=== PATIENT | female | born 1985 | race African-American/Black ===

== ENCOUNTER 2016-09-08 18:18 | Emergency (ER) | payer SELFPAY ==
[~2016-09-08] VITALS: Ht 160 cm; Wt 101.1 kg
[~2016-09-08 18:18] MED LIST: NAPROSYN500 MG PO
[2016-09-08 18:45] VITALS: BP 112/71
== END 2016-09-08 20:13 ==
LOC: RME 18:18 → EME 18:18 → RME 20:13
DX: S43.402A Unspecified sprain of left shoulder joint, initial encounter (principal); X50.3XXA Overexertion from repetitive movements, initial encounter; Y93.E5 Activity, floor mopping and cleaning
CPT/HCPCS: 73030; 99281; 99283

== ENCOUNTER 2017-05-31 15:37 | Emergency (ER) | payer OTHER ==
[~2017-05-31] VITALS: Ht 175.3 cm; Wt 104.4 kg
[2017-05-31 16:22] LABS: HEMATOCRIT 34.2 % (36.0-46.0); HEMOGLOBIN 11.9 G/DL (11.9-15.5); MCH 32.3 PG (29.0-34.0); MCHC 34.8 G/DL (30.0-36.0); MCV 92.9 FL (83-99); PLATELET COUNT 214 K/uL (156-360); RBC DIS.WIDTH-CV 14.2 % (11.8-14.6); RBC DIS.WIDTH-SD 47.9 % (39-53); RED BLOOD COUNT 3.68 M/uL (3.80-5.20); WHITE BLOOD COUNT 8.6 K/uL (4.1-10.2)
[2017-05-31 16:30] LABS: CHLORIDE 107 mEq/L (99-109); POTASSIUM 4.2 mEq/L (3.7-5.4); SODIUM 140 mEq/L (136-147)
[2017-05-31 16:32] LABS: GLUCOSE 109 mg/dL (70-99)
[2017-05-31 16:35] LABS: SERUM ETHYL ALCOHOL < 10 mg/dL
[2017-05-31 16:36] LABS: CREATININE 0.8 mg/dL (0.6-1.3); GFR ESTIMATE (CALCULATED) > 59 mL/min/
[2017-05-31 16:37] LABS: UREA NITROGEN (BUN) 21 mg/dL (9-23)
[2017-05-31] MEDS ORDERED: HALDOL5 MG PO (17:03)
[2017-05-31 17:43] LABS: AMPHETAMINE NEGATIVE (500 ng/mL); BARBITURATES NEGATIVE (200 ng/mL); BENZODIAZEPINES NEGATIVE (150 ng/mL); BUPRENORPHINE NEGATIVE (10 ng/mL); COCAINE NEGATIVE (150 ng/mL); METHADONE NEGATIVE (200 ng/mL); METHAMPHETAMINE NEGATIVE (500 ng/mL); OPIATES (MORPHINE) NEGATIVE (100 ng/mL); OXYCODONE NEGATIVE (100 ng/mL); PHENCYCLIDINE NEGATIVE (25 ng/mL); PROPOXYPHENE NEGATIVE (300 ng/mL); THC CANNABINOIDS NEGATIVE (50 ng/mL); TRICYCLIC ANTIDEPRESSANTS NEGATIVE (300 ng/mL)
[2017-05-31 20:00] VITALS: BP 121/73
== END 2017-05-31 20:06 | disposition home or self-care (01) ==
LOC: EME 15:37
PROVIDERS: Emergency Medicine Emergency Medical Services
DX: F32.9 Major depressive disorder, single episode, unspecified (principal); F20.9 Schizophrenia, unspecified; R45.851 Suicidal ideations; R45.850 Homicidal ideations; I10 Essential (primary) hypertension; J45.909 Unspecified asthma, uncomplicated; F31.81 Bipolar II disorder; Z98.890 Other specified postprocedural states; Z87.891 Personal history of nicotine dependence
CPT/HCPCS: 80048; 85027; 90839; 99281; 99283; G0480